=== PATIENT | male | born 1955 | race Caucasian/White ===

== ENCOUNTER 2023-11-20 10:20 | Inpatient (IN) ==
[2023-11-20 11:13] LABS: Basophils # (auto) 0.03 K/uL (0.00-0.20); Basophils % (auto) 0.4 %; Eosinophils % (auto) 1.4 %; Hemoglobin 15.5 g/dl (14.0-18.0); Immature Granulocytes # (auto) 0.02 K/uL (0.01-0.20); Immature Granulocytes % (auto) 0.3 %; Lymphocytes # (auto) 1.67 K/uL (1.20-3.40); Lymphocytes % (auto) 23.4 %; Mean Corpuscular Hemoglobin 32.2 pg (25.0-34.0); Mean Corpuscular Hgb Conc 33.7 g/dL (32.0-36.0); Mean Corpuscular Volume 95.4 fL (80.0-100.0); Mean Platelet Volume 10.1 fL (9.4-12.4); Monocytes # (auto) 0.69 K/uL (0.11-0.59); Monocytes % (auto) 9.7 %; Neutrophils # (auto) 4.64 K/uL (1.40-6.50); Neutrophils % (auto) 64.8 %; Platelet Count 181 K/uL (130-400); RDW Coefficient of Variation 13.6 % (11.5-14.5); RDW Standard Deviation 47.9 fL (36.4-46.3); Red Blood Count 4.82 M/uL (4.70-6.10); White Blood Count 7.15 K/ul (4.8-10.8)
[2023-11-20 11:20] LABS: Albumin Globulin Ratio 1.6 (0.9-2); Albumin Level 4.4 gm/dl (3.4-5.0); Bilirubin,Total 0.4 mg/dl (0.2-1.0); Calcium 9.4 mg/dl (8.6-10.3); Est GFR (African American) 57.1 ml/min; Est GFR (Non-African American) 49.3 ml/min; Globulin 2.8 gm/dl (2.5-4.0); Potassium 4.4 mmol/L (3.5-5.1); Total Protein 7.2 gm/dl (6.0-8.3)
[2023-11-20] MEDS: SODIUM CHLORIDE 0.9% 500 ML IV ONE (11:30)
--- NOTE | 2023-11-20 11:37 | XRay Report ---
SINGLE VIEW CHEST CLINICAL HISTORY: Dyspnea FINDINGS: 2 AP, portable, upright chest radiographs are obtained. No prior studies are available for comparison at the time of dictation. The heart is enlarged. The pulmonary vasculature is noncongested . Nonspecific interstitial thickening is likely chronic. There is mild bibasilar scarring/atelectasis . No airspace consolidation or large pleural effusion is identified. No pneumothorax is seen. The ske letal structures are osteopenic. The bony thorax is grossly intact. Arthritic change is seen in the r ight shoulder. IMPRESSION: Cardiomegaly with no active disease in the chest. ACT 112: Negative or not required by law. Electronically signed by: Laurent Hauser M.D. 11/20/2023 11:35 AM
[2023-11-20] MEDS: OPTIRAY 320 125ml IV ONE (11:41)
[2023-11-20 11:42] LABS: INR 1.1 (0.9-1.1); Partial Thromboplastin Time 27 Seconds (21-31); Prothrombin Time 11.4 Seconds (9.0-12.0)
--- NOTE | 2023-11-20 11:45 | Emergency Department Note ---
Impression & Plan Pulmonary embolism, Elevated troponin ED Provider Note Provider: Tres Jimenez MD DATE OF SERVICE: 11/20/2023 CHIEF COMPLAINT: Dyspnea on exertion HISTORY OF PRESENT ILLNESS: Patient is a 68-year-old gentleman significant history of cardiac arrhythmias and ventricular ectopy status post 3 ablations over the past 12 years visiting the area originally from [place] and follows at [facility] presenting here today complaining of shortness of breath issues. States over the last month or 2 he has noticed a little bit of decreased exercise tolerance and dyspnea on exertion. Has seen his outpatient doctors and they increased his Entresto. Reportedly an outpatient Holter monitor without significant abnormalities reported as well as an echo showing slightly decreased heart function of 40 to 45% ejection fracture. Follows closely with his PCP. This morning left fifth working stopped here to refill the car when when walking at the store began develop severe shortness of breath with exertion. States he had to stop and sit down and he felt near syncopal but did not syncopize. Denies any chest pain. Use the bathroom and then walking back out of the car area of this recurred. Denies significant leg swelling. Denies abdominal pain or nausea or vomiting. Did not much to eat or drink today and states he did feel again some near syncopal or dizzy. No fevers or cough or cold. Texted and talked with his doctor recommend coming in for evaluation. Has traveled fairly significantly recently in the distant past did have a blood clot in his legs is no longer on blood thinners. Patient denies significant sinus congestion. Patient did incidentally have a colonoscopy 2 days ago. Blood pressure was slightly low at that time after the procedure by his report. PAST MEDICAL HISTORY: As noted above MEDICATIONS: Reviewed home medications occasional baby aspirin as well as regular Entresto and carvedilol SOCIAL HISTORY: , lives around [place] PHYSICAL EXAM: GENERAL: alert and oriented in no acute distress on stretcher Head: normocephalic and atraumatic EYES: No injection, discharge or icterus. EOMI. NECK: Trachea midline. ENT: Mucous membranes pink and moist. LUNGS: Airway patent. No retractions. Breath sounds clear with good air entry bilaterally. HEART: Regular rate and rhythm. No chest wall tenderness ABDOMEN: Soft and non-tender, without guarding or rebound. SKIN: Acyanotic, warm, dry, without rashes EXTREMITIES: Without swelling, tenderness or deformity NEUROLOGICAL: No focal deficits. No aphasia. No facial droop or slurred speech. Normal strength and tone in the extremities. Sensation to gross touch normal. Ambulatory. EK bpm sinus rhythm with frequent PVCs. Left axis with a right bundle branch block noted. No clear acute ST segment elevation. QTc 514. CONTINUOUS CARDIAC MONITORING: was ordered and showed a heart rate of 70s-80s bpm in sinus rhythm frequent PVCs Patient's laboratory studies and imaging reviewed. Differential includes Reactive airway disease, pneumonia, pneumothorax, COPD, CHF, infections, cardiac ischemia, pulmonary embolism, musculoskeletal, gastrointestinal, as well as other pathologies. IMPRESSION/MEDICAL DECISION MAKING: Patient does follow regularly with his doctors back in [place] including evaluation this past week. Chest x-ray here without significant findings for pulmonary edema/effusion, pneumothorax, or pneumonia. Patient does not appear an extremis and is satting well on room air. Is having some ectopy with PVCs on telemetry here. Not having significant infectious symptoms and lower suspicion for this etiology but did send a respiratory viral panel. No clinical evidence of swelling in the legs and again low suspicion for heart failure. No clinical evidence of swelling or tenderness in the calves and without clear evidence of DVT. Will exclude PE with a CT of the chest which the patient was sent here for given his recent travel and symptoms. Blood work here without anemia or leukocytosis. Creatinine mildly abnormal at 1.4 but unsure of exact baseline. No severe hyponatremia or hyperkalemia noted without findings of transaminitis. Troponin completed today mildly elevated 52. Respiratory viral panel negative. CT angiogram of the chest per radiology shows extensive bilateral PEs. Discussed with critical care medicine Dr. Caba regarding the patient's case and presentation in regards to initiation of heparin versus thrombolysis. Extensive discussion with by myself as well as the hospitalist with the patient his at bedside. Do believe the patient requires hospitalization and discussing the risk and benefits of anticoagulation versus possibly first using thrombolytics like tPA patient elected to go with anticoagulation and defer thrombolysis at this time. Not hypoxic. Blood pressure in the 100s to 1 teens here. Not tachycardic. Patient states he did have a small end of bleeding after the colonoscopy although this is stopped and the abnormal bowel movement since. Hospitalist will admit the patient. DIAGNOSIS: Pulmonary embolisms, elevated troponin DISPOSITION: Hospitalist will evaluate Patient was agreeable with this plan. Past Med/Surg History Problem List (Updated 11/20/23 @ 12:48 by Tres Jimenez M.D.) Elevated troponin (Acute) Pulmonary embolism (Acute) Social History Smoking Status: Never smoker Preferred Language: Belarusian Feels Safe at Home: Yes Results & Data (ED) Vital Signs Vital Signs - 24 hr 11/20/23 10:21 11/20/23 10:55 11/20/23 10:56 Temperature 36.6 C Temperature Source Temporal Artery Scan Pulse Rate 53 L Pulse Rate [Apical] 83 Respiratory Rate 18 18 Respiratory Effort / Characteristics Non-Labored Spontaneous Respiratory Depth Normal Blood Pressure 86/56 L Blood Pressure [Right Arm] 92/65 L Blood Pressure Mean 66 Blood Pressure Mean [Right Arm] 74 Pulse Oximetry 96 94 94 Oxygen Delivery Method Room Air Room Air Sepsis Recent Fever Within 48 Hours No Sepsis New/Unexplained Change in Mental Status N/A Sepsis Action Taken by Nursing No Action Required 11/20/23 12:04 Temperature Temperature Source Pulse Rate 78 Pulse Rate [Apical] Respiratory Rate Respiratory Effort / Characteristics Respiratory Depth Blood Pressure Blood Pressure [Right Arm] Blood Pressure Mean Blood Pressure Mean [Right Arm] Pulse Oximetry Oxygen Delivery Method Sepsis Recent Fever Within 48 Hours Sepsis New/Unexplained Change in Mental Status Sepsis Action Taken by Nursing Laboratory Data 11/20/23 10:45 11/20/23 10:45 Lab Results 11/20/23 11/20/23 Range/Units 10:45 11:03 WBC 7.15 (4.8-10.8) K/ul RBC 4.82 (4.70-6.10) M/uL Hgb 15.5 (14.0-18.0) g/dl Hct 46.0 (42.0-52.0) % MCV 95.4 (80.0-100.0) fL MCH 32.2 (25.0-34.0) pg MCHC 33.7 (32.0-36.0) g/dL RDW Std Deviation 47.9 H (36.4-46.3) fL RDW Coeff of Ralu 13.6 (11.5-14.5) % Plt Count 181 (130-400) K/uL MPV 10.1 (9.4-12.4) fL Immature Gran % (Auto) 0.3 % Neut % (Auto) 64.8 % Lymph % (Auto) 23.4 % [place] % (Auto) 9.7 % Eos % (Auto) 1.4 % Baso % (Auto) 0.4 % Neut # (Auto) 4.64 (1.40-6.50) K/uL Lymph # (Auto) 1.67 (1.20-3.40) K/uL [place] # (Auto) 0.69 H (0.11-0.59) K/uL Eos # (Auto) 0.10 (0.00-0.50) K/uL Baso # (Auto) 0.03 (0.00-0.20) K/uL Immature Gran # (Auto) 0.02 (0.01-0.20) K/uL PT 11.4 (9.0-12.0) Seconds INR 1.1 (0.9-1.1) APTT 27 (21-31) Seconds PTT Ratio 1.0 Sodium 139 (136-145) mmol/L Potassium 4.4 (3.5-5.1) mmol/L Chloride 110 H (98-107) mmol/L Carbon Dioxide 20 L (21-32) mmol/L Anion Gap 9 (3-11) BUN 30 H (6-23) mg/dl Creatinine 1.43 H (0.6-1.4) mg/dl Est Cr Clr Drug Dosing 59.0 ml/min Est GFR ( Amer) 57.1 ml/min Est GFR (Non-Af Amer) 49.3 ml/min BUN/Creatinine Ratio 21.0 H (10-20) Glucose 155 H (70-99(Fasting)) mg/dl Calcium 9.4 (8.6-10.3) mg/dl Magnesium 2.0 (1.7-2.4) mg/dl Total Bilirubin 0.4 (0.2-1.0) mg/dl AST 21 (13-39) U/L ALT 20 (7-52) U/L Alkaline Phosphatase 92 (34-104) U/L Troponin I High Sens 52.2 H* (0-20) pg/ml Total Protein 7.2 (6.0-8.3) gm/dl Albumin 4.4 (3.4-5.0) gm/dl Globulin 2.8 (2.5-4.0) gm/dl Albumin/Globulin Ratio 1.6 (0.9-2) Adenovirus (PCR) Not Detected (NotDetected) B. pertussis DNA (PCR) Not Detected (NotDetected) B.parapertussis DNA PCR Not Detected (NotDetected) C. pneumoniae DNA (PCR) Not Detected (NotDetected) Coronavirus OC43 (PCR) Not Detected (NotDetected) Coronavirus HKU1 (PCR) Not Detected (NotDetected) Coronavirus 229E (PCR) Not Detected (NotDetected) SARS-CoV-2 (PCR) Not Detected (NotDetected) Coronavirus NL63 (PCR) Not Detected (NotDetected) Human Metapneumovir PCR Not Detected (NotDetected) Influenza Type A (PCR) Not Detected (NotDetected) Influenza Type B (PCR) Not Detected (NotDetected) M. pneumoniae (PCR) Not Detected (NotDetected) Parainfluenza 1 (PCR) Not Detected (NotDetected) Parainfluenza 2 (PCR) Not Detected (NotDetected) Parainfluenza 3 (PCR) Not Detected (NotDetected) Parainfluenza 4 (PCR) Not Detected (NotDetected) RSV (PCR) Not Detected (NotDetected) Entero/Rhino (PCR) Not Detected (NotDetected) Administered Medications Discontinued Medications Sodium Chloride (Nss) 500 mls @ 999 mls/hr IV .Q31M ONE Stop: 11/20/23 11:47 Last Admin: 11/20/23 11:30 Dose: 999 mls/hr Documented By: MENDEL Ioversol (Optiray 320 125ml) 112 ml IV ONCE ONE Stop: 11/20/23 11:42 Last Admin: 11/20/23 11:41 Dose: 112 ml Documented By: JASWINDER Imaging Data Radiologist's Impression: Chest X-Ray 11/20/23 10:52 SINGLE VIEW CHEST CLINICAL HISTORY: Dyspnea FINDINGS: 2 AP, portable, upright chest radiographs are obtained. No prior studies are available for comparison at the time of dictation. The heart is enlarged. The pulmonary vasculature is noncongested. Nonspecific interstitial thickening is likely chronic. There is mild bibasilar scarring/atelectasis. No airspace consolidation or large pleural effusion is identified. No pneumothorax is seen. The skeletal structures are osteopenic. The bony thorax is grossly intact. Arthritic change is seen in the right shoulder. IMPRESSION: Cardiomegaly with no active disease in the chest. ACT 112: Negative or not required by law. Electronically signed by: Laurent Hauesr M.D. 11/20/2023 11:35 AM Discharge Plan Visit Data Chief Complaint: Shortness of Breath/Dyspnea Stated Complaint: SOB, POSSIBLE BLOOD CLOT, REF BY DOC ED Provider: Tres Jimenez Discharge Problem: Pulmonary embolism, Elevated troponin Patient Disposition: Being Evaluated by Hospitalist Forms Stand Alone Forms: [facility] Referrals Referrals: Narendra Acosta MD [Primary Care Provider] - Discharge Problem: Pulmonary embolism Qualifiers: Pulmonary embolism type: unspecified Chronicity: acute Acute cor pulmonale presence: unspecified Qualified Code(s): I26.99 - Other pulmonary embolism without acute cor pulmonale
[2023-11-20 11:52] LABS: Troponin I High Sensitivity 52.2 pg/ml (0-20)
[2023-11-20 12:05] LABS: Adenovirus PCR Not Detected (NotDetected); Bordetella parapertussis PCR Not Detected (NotDetected); Bordetella pertussis PCR Not Detected (NotDetected); Chlamydia pneumoniae PCR Not Detected (NotDetected); Coronavirus 229E PCR Not Detected (NotDetected); Coronavirus CoV-2 (COVID19)PCR Not Detected (NotDetected); Coronavirus HKU1 PCR Not Detected (NotDetected); Coronavirus NL63 PCR Not Detected (NotDetected); Coronavirus OC43PCR Not Detected (NotDetected); Human Metapneumovirus PCR Not Detected (NotDetected); Influenza A PCR Not Detected (NotDetected); Influenza B PCR Not Detected (NotDetected); Mycoplasma pneumoniae PCR Not Detected (NotDetected); Parainfluenza Virus 1 PCR Not Detected (NotDetected); Parainfluenza Virus 2 PCR Not Detected (NotDetected); Parainfluenza Virus 3 PCR Not Detected (NotDetected); Parainfluenza Virus 4 PCR Not Detected (NotDetected); Respiratory Syncytial VirusPCR Not Detected (NotDetected); Rhinovirus/Enterovirus PCR Not Detected (NotDetected)
[2023-11-20 12:43] LABS: Thyroid Stimulating Hormone 2.963 uIu/ml (0.300-4.500)
[2023-11-20] MEDS ORDERED: Heparin IV Adult Wt-Based Standard w/ INITIAL Bolus Protocol IV STA (12:46)
--- NOTE | 2023-11-20 12:46 | CT Scan Report ---
CT ANGIOGRAM OF THE CHEST CLINICAL HISTORY: Dyspnea. Dizziness. COMPARISON STUDY: Chest x-ray dated 11/20/2023. TECHNIQUE: Following the IV administration of 112 cc of Optiray 320, CT angiogram of the chest was pe rformed from the upper abdomen to the thoracic inlet utilizing the pulmonary embolus protocol. Images are reviewed in the axial, sagittal, and coronal planes. 3-D MIPS images are created and assessed. I V contrast was administered without complication. A dose lowering technique was utilized adhering to the principles of ALARA. CT DOSE: 855.04 mGy.cm FINDINGS: Thyroid: Imaged portions of the thyroid gland are normal in size and attenuation. Thoracic aorta: The thoracic aorta is normal in caliber and demonstrates standard 3-vessel arch anato my. The thoracic aorta is not opacified. Pulmonary vasculature: The pulmonary trunk is dilated, measuring 3.9 cm in diameter. This indicates p ulmonary hypertension. There is extensive bilateral pulmonary embolus. There is thrombus within the m id to distal right main pulmonary artery. This extends into the right upper, middle, and lower lobe p ulmonary arteries NG tube segmental and subsegmental branches. There is thrombus in the distal left m ain pulmonary artery. This extends into the left lower lobe pulmonary artery NG tube segmental and puckett bsegmental branches. There is segmental and subsegmental poor embolus within branches of the left upp er lobe and lingular pulmonary arteries.. Heart: The heart is enlarged and without pericardial effusion. There is coronary artery atheroscleros is. Lungs and pleural spaces: No airspace consolidation or pleural effusion is identified. The trachea an d central airways are clear. Scarring/atelectasis is noted at the lung bases. There are scattered jeffrey cified granulomas. Mediastinum: There is no mediastinal lymphadenopathy. Estelle: Clear. Axillae: There is no axillary lymphadenopathy. Upper abdomen: Partially visualized upper abdominal viscera is within normal limits. Skeletal structures: The skeletal structures are osteopenic. Advanced arthritic change is seen in the shoulders. Mild spondylotic change is noted in the spine. No lytic or blastic bony lesions are seen. Soft tissues: Mild gynecomastia is observed. IMPRESSION: 1. Extensive bilateral pulmonary emboli as detailed above. 2. Cardiomegaly with evidence of pulmonary artery hypertension. 3. No airspace consolidation or pleural effusion is identified. 4. Additional findings as above. ACT 112: Negative or not required by law. Electronically signed by: Laurent Hauser M.D. 11/20/2023 12:43 PM
[2023-11-20] MEDS ORDERED: HEPARIN SOD (PORCINE) 1000 UNIT/ML IV ONE (13:01)
[2023-11-20] MEDS ORDERED: HEPARIN SODIUM/DEXTROSE 25,000 UNITS/500 ML BAG IV SCH (13:15)
--- NOTE | 2023-11-20 13:17 | History & Physical Report ---
Date of Service November 20, 2023 Assessment & Plan (1) Pulmonary embolism: Plan: Massive PE - CTA: 1. Extensive bilateral pulmonary emboli as detailed above. 2. Cardiomegaly with evidence of pulmonary artery hypertension. 3. No airspace consolidation or pleural effusion is identified. -With history of prior DVT anticoagulation discontinued after several months of treatment Likely provoked by up to 10-hour car rides multiple times while traveling in the recent week. Denies trauma/injury. Does not use tobacco products Blood pressure 86/56, 92/65 on arrival and pt w/ presyncope while in the parking lot. Patient transiently with blood pressure improvement while laying in bed however pressures again dropped back down to low 90s. - Meets massive PE criteria. Presyncope with hypotension and extensive bilateral clot burden without saddle; he does show some evidence of heart strain w/ elevated troponin. Also reviewed w/ rads and there is not significant RV dilation or reversal of the IV septum, some dilation of the pulmonary trunk but this could be related to either right heart strain or PAH. Discussed risk/benefits of thrombolytic therapy and bleeding risk patient and his at bedside. Discussed potential options including management with heparin alone, thrombolysis, and half dose thrombolysis protocol. Risks of thrombolysis were reviewed. Bleeding risk was reviewed in detail, patient had some transient bright red blood following colonoscopy from hemorrhoid but otherwise has had multiple normal bowel movements since with no blood and no active bleeding within the last 24 hours. No history of other significant bleeding. Patient is aware of risk of bleeding, approximate 6-9% of major bleeding, and 1.5-3% risk of ICH with standard protocol. On extensive discussion and shared decision making, of which patient also texted to involve their PCP with who they have a close relationship, elected to pursue half dose thrombolytic treatment. Patient had already been started on tPA, fibrinogen deferred. - trended coags Q1H, transition to heparin gtt no bolus when PTT <2x normal/Anti-Xa 0.4 per protocol (2) Elevated troponin: Plan: Suspect due to heart strain No chest pain or chest pressure Without acute ischemic change on EKG Patient did have a history of PVCs and known ischemic cardiomyopathy. Has not had any PVCs on his last Holter monitor, these have returned while in the ER likely due to heart strain/stress - echo pending - Records from outpt providers requested, may not be available until 11/21 (3) Nonischemic cardiomyopathy: Plan: Patient reports he is on carvedilol and Entresto. Denies history of heart attacks/stents. Did have an ablation for PVCs Last EF 40-45% Echo pending Troponin trended Records requested (4) Diabetes: Plan: Type II DM on metformin monotherapy, metformin held ICU hypoglycemia protocol Plan DVT prophylaxis: Anticoagulated Diet: Heart healthy Disposition: ICU CODE STATUS: Full code History of Present Illness Primary Care Provider: Narendra Shereen Dave Brice is a 68-year-old male with a past medical history of extensive PVCs with reduced EF s/p ablation denies history of ischemic disease, DM on metformin, past PE who is traveling through town who has had multiple 10-hour car rides recently and was charging his vehicle when he became lightheaded/dizzy and short of breath. Shortness of breath worsened and presented to the ER. He was found to have bilateral extensive PE with high clot burden, no saddle PE. She is from out of town and lives near [place]. He reports that he has had multiple 10-hour drive in the last week as he had been traveling with his . Yesterday he was a little short of breath in the evening, today he was feeling his vehicle and shortness of breath significantly increased and was associated with lightheadedness and presyncope, but without syncope. He did not have chest pain at the time. He did not pass out or hit his head. He was advised to go to the ER after contacting his PCP by phone. He had a colonoscopy 2 days ago which reportedly had a small amount of bright red hemorrhoidal bleeding which resolved and he has had normal bowel movements since. No melena. No hematochezia in the last 24 hours. Denies history of other significant bleeding including GI bleeds, spontaneous epistaxis. No known history of vascular malformations or aneurysms. On arrival patient's BP was 86/56 and 92/65. Heart rate 80s History of DVT many years ago. Cardiac ablation, ventricular ablation for PVCs. Well controlled after. No PVCs since, although are seen now s/p appendectomy hernia repair No surgery in the last 6 months Carvedilol, Entresto due to ablations and frequent PVCs with EF 40-45%. Had some dyspnea 1 week ago. Had a bubble study with no PFO in July Atorvastatin 20mg daily Metformin Well controlled DM 6.7% at last A1C Was in the car for 10 hours several times in the last few weeks travelling. - Dr. Castellano. [facility] in [facility] near [place] - Dr. Narendra Acosta with [facility] and [place] No HX of ICH. NO known vascular malformation or cancer. No hx of stroke or dissection. No active bleeding. No trauma./ Medical History: Reviewed Medications: Reviewed. Surgical History: Reviewed Family history: Reviewed. No FHx of VTE/PE. Allergies: Reviewed. Cough to lisinopril, otherwise NKDA Social History: No tobacco, former smoker 30 years ago. 1 drink ETOH per night, no hx withdrawal or issues going without Code Status: Full Code Allergies Allergy/AdvReac Type Severity Reaction Status Date / Time lisinopril Allergy Cough Verified 11/20/23 13:22 Home Medications Medication Instructions Recorded Confirmed Type B12 1 tab PO QAM 11/20/23 11/20/23 History aspirin 81 mg tablet,delayed 81 mg PO QAM 11/20/23 11/20/23 History release atorvastatin 20 mg tablet 20 mg PO HS 11/20/23 11/20/23 History carvedilol 25 mg tablet 25 mg PO BID 11/20/23 11/20/23 History metformin 500 mg tablet,extended 1,000 mg PO DAILY 11/20/23 11/20/23 History release 24hr (osmotic) sacubitril 24 mg-valsartan 26 mg 1 tab PO BID 11/20/23 11/20/23 History tablet (Entresto) sildenafil (pulm.hypertension) 20 20 mg PO UD PRN Other 11/20/23 11/20/23 History mg tablet Past Med/Surg History Problem List Acute massive pulmonary embolism Diabetes Nonischemic cardiomyopathy Elevated troponin (Acute) Pulmonary embolism (Acute) Social History Smoking Status: Never smoker Preferred Language: Macedonian Feels Safe at Home: Yes Physical Exam Physical Exam: General: A&Ox3. NAD. Cooperative. HEENT: Atraumatic, normocephalic. Vision/hearing intact. Pulm: CTAB A&P. -wheezes, -rales, -rhonchi. Symmetrical chest rise. No increased work of breathing. No respiratory distress. Cardiac: RRR, +soft sm. Radial pulses intact and symmetrical. Abdominal: Nontender, nondistended, soft. BS present. Extremities: Warm and dry. no calf asymmetry Results & Data Results & Data Vital Signs (Past 12 Hours) Vital Signs Temp Pulse Pulse Resp BP BP Pulse Ox 11/20/23 12:04 78 11/20/23 10:56 94 11/20/23 10:55 83 18 92/65 L 94 11/20/23 10:21 36.6 C 53 L 18 86/56 L 96 O2 Del Method 11/20/23 12:04 11/20/23 10:56 Room Air 11/20/23 10:55 Room Air 11/20/23 10:21 PG Care Time/CCT Total # of Minutes Spent Total Time Spent with Patient: Total time spent is greater than 50% in coordination of care (as documented) at patient's floor/unit and/or counseling patient: Coding Level of Care Code 02969 INT INP/OBS CARE 3/75MIN Diagnoses Pulmonary embolism I26.99 Acute cor pulmonale presence: unspecified Chronicity: acute Pulmonary embolism type: unspecified Elevated troponin R79.89 Nonischemic cardiomyopathy I42.8 Diabetes E11.9 (1) Pulmonary embolism Acute cor pulmonale presence: unspecified Chronicity: acute Pulmonary embolism type: unspecified Qualified Code(s): I26.99 - Other pulmonary embolism without acute cor pulmonale
[2023-11-20] MEDS: ALTEPLASE 50mg IV over 2hr **For PE (high bleed/submassive) IV STA (14:10)
[2023-11-20] MEDS: NSS 50 ML--Send if TPA given as SVP IV ONE (14:39)
[2023-11-20] MEDS: HEPARIN SOD (PORCINE) 1000 UNIT/ML IV ONE (14:40)
[2023-11-20] MEDS: PRIMARY PLUMSET--Send if TPA given as SVP IV ONE (14:41)
--- NOTE | 2023-11-20 15:55 | Ultrasound Report ---
ULTRASOUND BILATERAL LOWER EXTREMITY VENOUS CLINICAL HISTORY: Pulmonary embolus COMPARISON STUDY: No priors. TECHNIQUE: Real-time, grayscale, and color Doppler sonography of the deep veins of the right and left lower extremity was performed from the inguinal crease to the calf. Compression and augmentation wer e utilized. FINDINGS: Right lower extremity: There is no sonographic evidence of deep venous thrombosis in the right lower extremity. The common femoral, superficial femoral, and popliteal veins are patent and normally compr essible. The greater saphenous vein and the profunda femoris vein at the junction with the common fem oral vein are clear. The visualized calf veins are patent. Occlusive superficial venous thrombus is s een in the lesser saphenous vein within the calf. This approaches within 1 cm of the popliteal vein a nd extends greater than 7 cm in length. Left lower extremity: There is nearly occlusive to occlusive deep venous thrombosis in the left lower extremity extending from the mid superficial femoral vein distally through the popliteal vein and in to the calf within the posterior tibial and peroneal veins. The common femoral vein in the proximal s uperficial femoral vein are patent and normally compressible. The greater saphenous vein and the prof unda femoris vein at the junction with the common femoral vein are clear. There is thrombus within th e lesser saphenous vein in the calf. IMPRESSION: 1. Extensive nearly occlusive to occlusive deep venous thrombosis in the left lower extremity as abov e. 2. There is no sonographic evidence of deep venous thrombosis in the right lower extremity. 3. Superficial venous thrombus is seen in the calf bilaterally within the lesser saphenous veins. ACT 112: Negative or not required by law. Electronically signed by: Laurent Hauser M.D. 11/20/2023 3:53 PM
[2023-11-20 16:06] LABS: ANTI-Xa, UFH(UnfractionatedHep < 0.10 IU/ml (0.3-0.7); Partial Thromboplastin Ratio 1.1; Partial Thromboplastin Time 29 Seconds (21-31)
[2023-11-20 16:11] LABS: Appearance Urine Clear (Clear); Bacteria Urine Automated None Seen (None Seen); Bilirubin Urine Negative (Negative); Blood Urine Negative (Negative); Color Urine Yellow; Epithelial Cell Urine Auto 0-2 /hpf (0-2); Glucose Urine UA Negative (Negative); Ketones Urine Trace (Negative); Leukocyte Esterase Urine Negative (Negative); Nitrite Urine Negative (Negative); Protein Urine Trace (Negative); RBC Urine Automated 0-2 /hpf (0-2); Specific Gravity Urine > 1.045 (1.000-1.030); Urobilinogen Urine Negative (Negative); WBC Urine Automated 0-5 /hpf (0-5); pH Urine 5.5 (4.5-7.5)
[2023-11-20] MEDS ORDERED: ICU Protocol for HYPERglycemia SCH (16:30)
[2023-11-20] MEDS: HEPARIN SODIUM/DEXTROSE 25,000 UNITS/500 ML BAG IV SCH (16:41)
[2023-11-20] MEDS: Heparin IV Adult Wt-Based Low-Dose *NO* INITIAL Bolus Protocol IV ONE (16:44)
[2023-11-20] MEDS: ICU Protocol for HYPERglycemia SCH (16:48)
[2023-11-20 17:18] LABS: Hematocrit (blood only) 43.8 % (42.0-52.0); Hemoglobin 14.8 g/dl (14.0-18.0); Mean Corpuscular Hgb Conc 33.8 g/dL (32.0-36.0); Mean Corpuscular Volume 94.8 fL (80.0-100.0); Mean Platelet Volume 9.8 fL (9.4-12.4); Platelet Count 166 K/uL (130-400); RDW Coefficient of Variation 13.7 % (11.5-14.5); RDW Standard Deviation 47.8 fL (36.4-46.3); Red Blood Count 4.62 M/uL (4.70-6.10); White Blood Count 7.83 K/ul (4.8-10.8)
--- NOTE | 2023-11-20 18:40 | Critical Care Consultation ---
Date of Consultation November 20, 2023 Assessment & Plan (1) Diabetes: (2) Nonischemic cardiomyopathy: (3) Pulmonary embolism: (4) Elevated troponin: (5) Acute massive pulmonary embolism: Plan Reason Critically Ill: 68 YOM presents to the ICU following massive PE with hemodynamic instability following Thrombolytic administration Neuro - No acute needs CAM ICU: Negative - neuro exams q2-4 hour follow thrombolytic- any change obtain non-con head ct Cardiac - shock, elevation of HsCTNI, NICM, - Shock secondary to obstructive from bilateral pulmonary artery trunks with extension into bilateral lobes of lungs as well as segmentals - s/p 50mg TPA- heparin in fusion as per protocol - Hemodynamics improved and RR improved- continue to follow - 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- likely will continue to need lifelong anticoagulation - Troponin elevated and downtrended without ECG changes- likely demand from PE and shock - Hold Carvedilol and Entresto until hemodynamics are proven stable Respiratory - No acute needs GI - No acute needs - diet advance as tolerated RENAL/LYTES - No acute needs - No acute needs ENDO - No acute needs - ICU hyper/hypoglycemia protocol HEME - DVT/PE - DVT- Left lower nearly occlusive to deep system, superficial bilaterally calves- now with large PE burdens- recommend lifelong anticoagulation - Patient reports that he had a DVT previous and reports that he had hypercoag panel that was what he reports as normal ID - No concern for infectious etiology at this time LINES/IV ACCESS - PIV Continue use of these lines DVT PROPHYLAXIS - Heparin infusion and SCDS DISPO: ICU until hemodynamics are proven stable I have personally spent 50 minutes of critical care time in the direct management of this patient. This is a life/limb threatening event. This includes time spent evaluating patient, direct bedside care, chart review, placing orders, interpretation of diagnostic studies, discussion with consultants, patient, and family members, as well as other required patient management ac tivities. This time is exclusive of all separately billable procedures, and teaching time and separate from and in addition to any other critical care service time. Thank you for allowing us to participate in the care of this patient. Please refer to my attending physician's documentation for any further recommendations. Supervising Physician Co-Signing Physician Notes I have personally evaluated and examined this patient. I agree with assessment and plan of Hossein REN. I was advised that this patient urgently via telephone from the emergency medicine provider. Given patient is symptomatic and initial blood pressure on presentation I feel that thrombolysis is strongly indicated. Providers report no contraindication to systemic thrombolysis. Patient initially declined however after discussion with PCP they opted to proceed with thrombolysis. History of Present Illness Reason for Consultation: Pulmonary Embolism with hemodyanmic instability s/p TPA Requesting Physician: Angel Robertson MD Attending Physician: Angel Robertson MD History of Present Illness 68 YOM with medical history of: PVCs, Ventricular ablation, DVT, DM, NICM. Patient came to the EMD today for evaluation of dyspnea and dizziness. The dizziness has been ongoing for the past 2 weeks he has had his medications adjusted by his PCP for his NICM/HFrEF and thought that may have been the cause. Today he was driving from [place] to [place] and stopped in [facility]. He got out of the car to go to the restroom and charge his car. He reports that he got dizzy and was having difficult breathing. He reports that he had to stop about every 100 feet to catch his breath and this was new for him. He came to the EMD. In the EMD the patient had a CXR, ECG, and CTA of the chest performed. He was noted to be hypotensive on arrival and tachypneic. He was not overtly hypoxic. His CTA of his chest noted extensive bilateral pulmonary embolism noted in the distal to mid right main stem extending into all lobes as well as thrombus in the distal left main that extended in to the left lower lobe as well as subsegmental emboli. With the patient's hypotension/pre-syncope- he was consented for Thrombolytics after a discussion with the hospitalist, Homeworker, and the patient's PCP. He was then admitted to the ICU where he will be continued on heparin infusion when his antiXA levels are approriate Allergies Allergy/AdvReac Type Severity Reaction Status Date / Time lisinopril Allergy Cough Verified 11/20/23 13:22 Home Medications Medication Instructions Recorded Confirmed Type B12 1 tab PO QAM 11/20/23 11/20/23 History aspirin 81 mg tablet,delayed 81 mg PO QAM 11/20/23 11/20/23 History release atorvastatin 20 mg tablet 20 mg PO HS 11/20/23 11/20/23 History carvedilol 25 mg tablet 25 mg PO BID 11/20/23 11/20/23 History metformin 500 mg tablet,extended 1,000 mg PO DAILY 11/20/23 11/20/23 History release 24hr (osmotic) sacubitril 24 mg-valsartan 26 mg 1 tab PO BID 11/20/23 11/20/23 History tablet (Entresto) sildenafil (pulm.hypertension) 20 20 mg PO UD PRN Other 11/20/23 11/20/23 History mg tablet Patient History Social History Smoking Status: Former smoker Tobacco Type: Cigarettes Hx Alcohol Use: Yes Alcohol type: hard liquor Hx Substance Use: No Preferred Language: Sami [employer] Required: No Beliefs That Will Affect Care: None Current Living Situation: Spouse Other Information That Helps Us Care for You: No Feels Safe at Home: Yes Safety Concerns: Feels Safe At This Time Assistive Devices: Glasses Review of Systems Review of Systems: REVIEW OF SYSTEMS: Constitutional: No fever, sweats or chills Eyes: No diplopia, no worsening or blurred vision ENT: normal hearing, no trouble swallowing Respiratory: (+) dyspnea with exertion, No cough, sputum, dyspnea at rest or on exertion Cardiovascular: (+) dizziness, palpitations, No chest pain, tightness or palpitations Abdomen: No pain, nausea, vomiting, diarrhea or constipation Musculoskeletal: No joint pain, calf pain, swelling Neurologic: No weakness, numbness/tingling, or balance problems Psychiatric: No anxiety or depression Skin: No rash or itch Physical Exam Physical Exam: PHYSICAL EXAM: General: awake, alert, no apparent distress Head: Normocephalic, atraumatic ENT: PERRL, EOMI, no pharyngeal exudate, mucous membranes moist Neuro: AAO x 3, speech clear and appropriate, strength intact bilaterally 5/5, sensation intact and equal all extremities and dermatomes, no pronator drift Chest: equal rise and fall of the chest, no accessory muscle use, no heaves or thrills, Clear to auscultation, on room air, Cardiac: Regular rate and rhythm, telemetry reviewed, skin warm dry, cap refill <3 seconds, peripheral pulses +2 no JVD, no murmur, no edema GI: NABS x 4 quadrants, soft, nontender to palpation, no rebound, guarding or tenderness : Spontaneously voiding, no pain, no CVA tenderness, Extremities: Normal inspection, no peripheral edema or erythema, calfs nontender to palpation Psych: Normal mood and affect Skin: no rash or erythema Results & Data Results & Data Vital Signs (Past 12 Hours) Vital Signs Temp Pulse Pulse Resp BP BP Pulse Ox 11/20/23 17:33 86 25 H 93 11/20/23 17:30 116/57 L 11/20/23 17:18 73 21 93 11/20/23 17:06 69 22 98 11/20/23 17:00 112/63 11/20/23 16:48 78 19 87 L 11/20/23 16:42 73 19 97 11/20/23 16:06 67 22 93 11/20/23 16:00 67 18 109/73 94 11/20/23 16:00 67 11/20/23 15:59 11/20/23 15:45 11/20/23 15:43 64 117/74 92 11/20/23 15:33 63 19 95 11/20/23 15:18 63 20 97 11/20/23 14:39 70 17 94 11/20/23 14:33 36.4 C L 68 23 105/63 95 11/20/23 14:10 67 18 108/68 97 11/20/23 14:00 72 14 96 11/20/23 13:49 106/56 L 11/20/23 13:48 71 22 11/20/23 13:48 97/70 L 11/20/23 13:48 73 18 106/56 L 95 11/20/23 13:36 73 20 11/20/23 12:39 79 9 L 95 11/20/23 12:04 78 11/20/23 12:03 74 13 95 11/20/23 11:30 97/65 L 11/20/23 11:30 78 13 94 11/20/23 11:06 81 12 92 11/20/23 11:00 91/64 L 11/20/23 10:56 94 11/20/23 10:55 83 18 92/65 L 94 11/20/23 10:45 81 14 94 11/20/23 10:42 85 13 11/20/23 10:21 36.6 C 53 L 18 86/56 L 96 Pulse Ox O2 Del Method O2 Del Method 11/20/23 17:33 11/20/23 17:30 11/20/23 17:18 11/20/23 17:06 11/20/23 17:00 11/20/23 16:48 11/20/23 16:42 11/20/23 16:06 11/20/23 16:00 Room Air 11/20/23 16:00 11/20/23 15:59 Room Air 11/20/23 15:45 94 Room Air 11/20/23 15:43 Room Air 11/20/23 15:33 11/20/23 15:18 11/20/23 14:39 11/20/23 14:33 Room Air 11/20/23 14:10 Room Air 11/20/23 14:00 11/20/23 13:49 11/20/23 13:48 11/20/23 13:48 11/20/23 13:48 Room Air 11/20/23 13:36 11/20/23 12:39 11/20/23 12:04 11/20/23 12:03 11/20/23 11:30 11/20/23 11:30 11/20/23 11:06 11/20/23 11:00 11/20/23 10:56 Room Air 11/20/23 10:55 Room Air 11/20/23 10:45 11/20/23 10:42 11/20/23 10:21 Laboratory Results Abnormal lab results 11/20/23 11/20/23 11/20/23 Range/Units 10:45 13:00 15:25 RBC (4.70-6.10) M/uL RDW Std Deviation 47.9 H (36.4-46.3) fL Yates # (Auto) 0.69 H (0.11-0.59) K/uL Heparin Anti-Xa, Unfract < 0.10 L (0.3-0.7) IU/ml Chloride 110 H (98-107) mmol/L Carbon Dioxide 20 L (21-32) mmol/L BUN 30 H (6-23) mg/dl Creatinine 1.43 H (0.6-1.4) mg/dl BUN/Creatinine Ratio 21.0 H (10-20) Glucose 155 H (70-99(Fasting)) mg/dl POC Glucose (70-99) mg/dl Troponin I High Sens 52.2 H* 50.1 H* 44.9 H (0-20) pg/ml Ur Specific [place] (1.000-1.030) Urine Protein (Negative) Urine Ketones (Negative) U Hyaline Cast (Auto) (0-2) /lpf 11/20/23 11/20/23 11/20/23 Range/Units 15:30 17:02 Unknown RBC 4.62 L (4.70-6.10) M/uL RDW Std Deviation 47.8 H (36.4-46.3) fL Yates # (Auto) (0.11-0.59) K/uL Heparin Anti-Xa, Unfract (0.3-0.7) IU/ml Chloride (98-107) mmol/L Carbon Dioxide (21-32) mmol/L BUN (6-23) mg/dl Creatinine (0.6-1.4) mg/dl BUN/Creatinine Ratio (10-20) Glucose (70-99(Fasting)) mg/dl POC Glucose 100 H (70-99) mg/dl Troponin I High Sens (0-20) pg/ml Ur Specific [place] > 1.045 H (1.000-1.030) Urine Protein Trace H (Negative) Urine Ketones Trace H (Negative) U Hyaline Cast (Auto) 3-5 H (0-2) /lpf Diagnostic Findings Chest X-Ray 11/20/23 10:52 SINGLE VIEW CHEST CLINICAL HISTORY: Dyspnea FINDINGS: 2 AP, portable, upright chest radiographs are obtained. No prior studies are available for comparison at the time of dictation. The heart is enlarged. The pulmonary vasculature is noncongested. Nonspecific interstitial thickening is likely chronic. There is mild bibasilar scarring/atelectasis. No airspace consolidation or large pleural effusion is identified. No pneumothorax is seen. The skeletal structures are osteopenic. The bony thorax is grossly intact. Arthritic change is seen in the right shoulder. IMPRESSION: Cardiomegaly with no active disease in the chest. ACT 112: Negative or not required by law. Electronically signed by: Laurent Hauser M.D. 11/20/2023 11:35 AM Chest CTA 11/20/23 11:17 CT ANGIOGRAM OF THE CHEST CLINICAL HISTORY: Dyspnea. Dizziness. COMPARISON STUDY: Chest x-ray dated 11/20/2023. TECHNIQUE: Following the IV administration of 112 cc of Optiray 320, CT angiogram of the chest was performed from the upper abdomen to the thoracic inlet utilizing the pulmonary embolus protocol. Images are reviewed in the axial, sagittal, and coronal planes. 3-D MIPS images are created and assessed. IV contrast was administered without complication. A dose lowering technique was utilized adhering to the principles of ALARA. CT DOSE: 855.04 mGy.cm FINDINGS: Thyroid: Imaged portions of the thyroid gland are normal in size and attenuation. Thoracic aorta: The thoracic aorta is normal in caliber and demonstrates standard 3-vessel arch anatomy. The thoracic aorta is not opacified. Pulmonary vasculature: The pulmonary trunk is dilated, measuring 3.9 cm in diameter. This indicates pulmonary hypertension. There is extensive bilateral pulmonary embolus. There is thrombus within the mid to distal right main pulmonary artery. This extends into the right upper, middle, and lower lobe pulmonary arteries NG tube segmental and subsegmental branches. There is thrombus in the distal left main pulmonary artery. This extends into the left lower lobe pulmonary artery NG tube segmental and subsegmental branches. There is segmental and subsegmental poor embolus within branches of the left upper lobe and lingular pulmonary arteries.. Heart: The heart is enlarged and without pericardial effusion. There is coronary artery atherosclerosis. Lungs and pleural spaces: No airspace consolidation or pleural effusion is identified. The trachea and central airways are clear. Scarring/atelectasis is noted at the lung bases. There are scattered calcified granulomas. Mediastinum: There is no mediastinal lymphadenopathy. Estelle: Clear. Axillae: There is no axillary lymphadenopathy. Upper abdomen: Partially visualized upper abdominal viscera is within normal limits. Skeletal structures: The skeletal structures are osteopenic. Advanced arthritic change is seen in the shoulders. Mild spondylotic change is noted in the spine. No lytic or blastic bony lesions are seen. Soft tissues: Mild gynecomastia is observed. IMPRESSION: 1. Extensive bilateral pulmonary emboli as detailed above. 2. Cardiomegaly with evidence of pulmonary artery hypertension. 3. No airspace consolidation or pleural effusion is identified. 4. Additional findings as above. ACT 112: Negative or not required by law. Electronically signed by: Laurent Hauser M.D. 11/20/2023 12:43 PM Venous Doppler Study 11/20/23 13:39 ULTRASOUND BILATERAL LOWER EXTREMITY VENOUS CLINICAL HISTORY: Pulmonary embolus COMPARISON STUDY: No priors. TECHNIQUE: Real-time, grayscale, and color Doppler sonography of the deep veins of the right and left lower extremity was performed from the inguinal crease to the calf. Compression and augmentation were utilized. FINDINGS: Right lower extremity: There is no sonographic evidence of deep venous thrombo sis in the right lower extremity. The common femoral, superficial femoral, and popliteal veins are patent and normally compressible. The greater saphenous vein and the profunda femoris vein at the junction with the common femoral vein are clear. The visualized calf veins are patent. Occlusive superficial venous thrombus is seen in the lesser saphenous vein within the calf. This approaches within 1 cm of the popliteal vein and extends greater than 7 cm in length. Left lower extremity: There is nearly occlusive to occlusive deep venous thrombosis in the left lower extremity extending from the mid superficial femoral vein distally through the popliteal vein and into the calf within the posterior tibial and peroneal veins. The common femoral vein in the proximal superficial femoral vein are patent and normally compressible. The greater saphenous vein and the profunda femoris vein at the junction with the common femoral vein are clear. There is thrombus within the lesser saphenous vein in the calf. IMPRESSION: 1. Extensive nearly occlusive to occlusive deep venous thrombosis in the left lower extremity as above. 2. There is no sonographic evidence of deep venous thrombosis in the right lower extremity. 3. Superficial venous thrombus is seen in the calf bilaterally within the lesser saphenous veins. ACT 112: Negative or not required by law. Electronically signed by: Laurent Hauser M.D. 11/20/2023 3:53 PM Medications Administered Heparin Sodium/Dextrose (Heparin Sodium/Dextrose) 25,000 units in 500 mls @ 20 mls/hr IV .Q24H SAMUEL; Protocol Stop: 12/20/23 16:44 Last Admin: 11/20/23 16:41 Dose: 1,000 units/hr, 20 mls/hr Documented By: NGOC Co-signed By: KERON Miscellaneous (Icu Protocol For Hyperglycemia) 1 each N/A ACHS SAMUEL Stop: 11/22/23 16:29 Last Admin: 11/20/23 16:48 Dose: 1 each Documented By: NGOC Discontinued Medications Heparin Sodium (Porcine) (Heparin Sod (Porcine) 1000 Unit/Ml) 7,000 units IV NOW ONE Stop: 11/20/23 13:02 Last Admin: 11/20/23 14:40 Dose: Not Given Documented By: NGOC Heparin Sodium/Dextrose (Heparin Iv Adult Wt-Based Low-Dose *No* Initial Bolus Protocol) 1 each IV ONE ONE; Protocol Stop: 11/20/23 14:30 Last Admin: 11/20/23 16:44 Dose: 1 each Documented By: NGOC Sodium Chloride (Nss) 500 mls @ 999 mls/hr IV .Q31M ONE Stop: 11/20/23 11:47 Last Infusion: 11/20/23 12:43 Dose: Infused Documented By: Admin: 11/20/23 11:30 Dose: 999 mls/hr Documented By: MNEDEL Alteplase, Recombinant 50 mg/ (EMPTY BAG) 50 mls @ 100 mls/hr IV NOW STA; Protocol Stop: 11/20/23 13:41 Last Infusion: 11/20/23 14:40 Dose: Infused Documented By: Admin: 11/20/23 14:10 Dose: 100 mls/hr Documented By: KELLIE N/A (Primary [place], Pe Lined Tubing ([id number])) 0 mls @ 0.0033 mls/hr IV ONE ONE Stop: 11/20/23 13:16 Last Admin: 11/20/23 14:41 Dose: 100 mls/hr Documented By: NGOC Sodium Chloride (Nss) 50 mls @ 50 mls/hr IV TODAY@ ONE; Protocol Stop: 11/20/23 14:14 Last Infusion: 11/20/23 16:13 Dose: Infused Documented By: Admin: 11/20/23 14:39 Dose: 50 mls/hr Documented By: NGOC Ioversol (Optiray 320 125ml) 112 ml IV ONCE ONE Stop: 11/20/23 11:42 Last Admin: 11/20/23 11:41 Dose: 112 ml Documented By: JASWINDER Coding Level of Care Code 97046 CRITICAL CARE 1ST 30-74M Diagnoses Diabetes E11.9 Nonischemic cardiomyopathy I42.8 Pulmonary embolism I26.99 Acute cor pulmonale presence: unspecified Chronicity: acute Pulmonary embolism type: unspecified Elevated troponin R79.89 Acute massive pulmonary embolism I26.99 (3) Pulmonary embolism Acute cor pulmonale presence: unspecified Chronicity: acute Pulmonary embolism type: unspecified Qualified Code(s): I26.99 - Other pulmonary embolism without acute cor pulmonale
[2023-11-20] MEDS ORDERED: carvediloL 25 MG TAB PO SCH (21:00)
[2023-11-20 21:03] LABS: ANTI-Xa, UFH(UnfractionatedHep 0.19 IU/ml (0.3-0.7)
[2023-11-20] MEDS: HEPARIN SOD (PORCINE) 1000 UNIT/ML IV STA (21:21)
[2023-11-21 03:49] LABS: Basophils # (auto) 0.04 K/uL (0.00-0.20); Basophils % (auto) 0.6 %; Eosinophils # (auto) 0.21 K/uL (0.00-0.50); Hematocrit (blood only) 40.6 % (42.0-52.0); Hemoglobin 13.8 g/dl (14.0-18.0); Immature Granulocytes # (auto) 0.03 K/uL (0.01-0.20); Immature Granulocytes % (auto) 0.4 %; Lymphocytes # (auto) 2.38 K/uL (1.20-3.40); Lymphocytes % (auto) 34.3 %; Mean Corpuscular Hemoglobin 32.3 pg (25.0-34.0); Mean Corpuscular Volume 95.1 fL (80.0-100.0); Mean Platelet Volume 10.1 fL (9.4-12.4); Monocytes # (auto) 0.63 K/uL (0.11-0.59); Monocytes % (auto) 9.1 %; Neutrophils # (auto) 3.65 K/uL (1.40-6.50); Neutrophils % (auto) 52.6 %; Platelet Count 147 K/uL (130-400); RDW Coefficient of Variation 13.6 % (11.5-14.5); RDW Standard Deviation 47.3 fL (36.4-46.3); Red Blood Count 4.27 M/uL (4.70-6.10); White Blood Count 6.94 K/ul (4.8-10.8)
[2023-11-21 04:00] LABS: ANTI-Xa, UFH(UnfractionatedHep 0.43 IU/ml (0.3-0.7)
[2023-11-21 04:50] LABS: BUN Creatinine Ratio 22.1 (10-20); Calcium 8.6 mg/dl (8.6-10.3); Creatinine Clr Calc Pharmacy 86.5 ml/min; Est GFR (African American) 93.6 ml/min; Est GFR (Non-African American) 80.8 ml/min; Potassium 3.8 mmol/L (3.5-5.1)
--- NOTE | 2023-11-21 07:41 | Critical Care Progress Note ---
Date of Service November 21, 2023 Assessment & Plan (1) Diabetes: (2) Nonischemic cardiomyopathy: (3) Pulmonary embolism: (4) Elevated troponin: (5) Acute massive pulmonary embolism: Plan Reason Critically Ill: 68 YOM presents to the ICU following massive PE with hemodynamic instability following Thrombolytic administration Neuro - No acute needs CAM ICU: Negative - neuro exams q2-4 hour follow thrombolytic- any change obtain non-con head ct Cardiac - shock, elevation of HsCTNI, NICM,: Resolved - Shock secondary to obstructive from bilateral pulmonary artery trunks with extension into bilateral lobes of lungs as well as segmentals -Consider restarting carvedilol and Entresto in the next 24 hours Respiratory - No acute needs, not requiring supplemental oxygen GI - No acute needs - diet advance as tolerated RENAL/LYTES - No acute needs - No acute needs ENDO - No acute needs - ICU hyper/hypoglycemia protocol HEME - DVT/PE - DVT- Left lower nearly occlusive to deep system, superficial bilaterally calves- now with large PE burdens- recommend lifelong anticoagulation -Start Eliquis ID - No concern for infectious etiology at this time LINES/IV ACCESS - PIV Continue use of these lines DVT PROPHYLAXIS - Heparin infusion, transition to Eliquis DISPO: Stable for downgrade later today Admission and Anticipated Discharge Date Admission Date: November 20, 2023 Subjective Patient with no significant complaints. Presentation similar to diagnosis 14 years ago which she had a DVT thought to be provoked secondary to the long car rides. Had treated with 6 months of anticoagulation: Warfarin and then discontinued without any recurrence until this admission. Feels fine however patient was only symptomatic with exertion. Discussed anticoagulant options he would like to try Eliquis at this time. Physical Exam Physical Exam: General: Alert. nontoxic. Skin: Warm, dry, Head: Atraumatic Ears, nose, mouth and throat: airway patent Cardiovascular: Normal peripheral perfusion Respiratory: no respiratory distress Gastrointestinal: Non distended Musculoskeletal: No deformity Results & Data Results & Data Vital Signs (Past 12 Hours) Vital Signs Temp Pulse Pulse Resp BP Pulse Ox O2 Del Method 11/21/23 07:21 83 11/21/23 06:00 85 20 113/64 93 Nasal Cannula 11/21/23 05:00 59 L 16 109/66 96 Nasal Cannula 11/21/23 04:00 36.4 C L 65 25 H 109/60 96 Nasal Cannula 11/21/23 03:00 61 18 111/58 L 90 Room Air 11/21/23 02:00 36.4 C L 63 24 113/69 92 Room Air 11/21/23 01:00 64 21 121/75 95 Room Air 11/21/23 00:23 36.5 C 11/21/23 00:00 77 11/21/23 00:00 77 16 110/65 92 Room Air 11/20/23 23:00 64 18 109/64 92 Room Air 11/20/23 22:00 36.5 C 67 16 108/66 92 Room Air 11/20/23 21:00 68 20 105/63 95 Room Air 11/20/23 20:02 67 19 118/70 94 Room Air 11/20/23 19:52 Room Air O2 Flow Rate 11/21/23 07:21 11/21/23 06:00 1 11/21/23 05:00 4 11/21/23 04:00 4 11/21/23 03:00 11/21/23 02:00 11/21/23 01:00 11/21/23 00:23 11/21/23 00:00 11/21/23 00:00 11/20/23 23:00 11/20/23 22:00 11/20/23 21:00 11/20/23 20:02 11/20/23 19:52 Critical Care Results & Data Vital Signs (Past 12 Hours) Vital Signs Temp Pulse Pulse Resp BP Pulse Ox O2 Del Method 11/21/23 07:21 83 11/21/23 06:00 85 20 113/64 93 Nasal Cannula 11/21/23 05:00 59 L 16 109/66 96 Nasal Cannula 11/21/23 04:00 36.4 C L 65 25 H 109/60 96 Nasal Cannula 11/21/23 03:00 61 18 111/58 L 90 Room Air 11/21/23 02:00 36.4 C L 63 24 113/69 92 Room Air 11/21/23 01:00 64 21 121/75 95 Room Air 11/21/23 00:23 36.5 C 11/21/23 00:00 77 11/21/23 00:00 77 16 110/65 92 Room Air 11/20/23 23:00 64 18 109/64 92 Room Air 11/20/23 22:00 36.5 C 67 16 108/66 92 Room Air 11/20/23 21:00 68 20 105/63 95 Room Air 11/20/23 20:02 67 19 118/70 94 Room Air 11/20/23 19:52 Room Air O2 Flow Rate 11/21/23 07:21 11/21/23 06:00 1 11/21/23 05:00 4 11/21/23 04:00 4 11/21/23 03:00 11/21/23 02:00 11/21/23 01:00 11/21/23 00:23 11/21/23 00:00 11/21/23 00:00 11/20/23 23:00 11/20/23 22:00 11/20/23 21:00 11/20/23 20:02 11/20/23 19:52 Lab & Micro Results (Past 24 Hours) RBC 4.27 M/uL (4.70-6.10) L 11/21/23 WBC 6.94 K/ul (4.8-10.8) 11/21/23 Hgb 13.8 g/dl (14.0-18.0) L 11/21/23 Hct 40.6 % (42.0-52.0) L 11/21/23 MCV 95.1 fL (80.0-100.0) 11/21/23 MCH 32.3 pg (25.0-34.0) 11/21/23 MCHC 34.0 g/dL (32.0-36.0) 11/21/23 RDW Standard Deviation 47.3 fL (36.4-46.3) H 11/21/23 RDW Coefficient of Variation 13.6 % (11.5-14.5) 11/21/23 Plt Count 147 K/uL (130-400) 11/21/23 MPV 10.1 fL (9.4-12.4) 11/21/23 Neutrophils (%) (Auto) 52.6 % 11/21/23 Lymphocytes (%) (Auto) 34.3 % 11/21/23 Monocytes # (Auto) 0.63 K/uL (0.11-0.59) H 11/21/23 Eosinophils # (Auto) 0.21 K/uL (0.00-0.50) 11/21/23 Immature Granulocyte % (Auto) 0.4 % 11/21/23 Neutrophils # (Auto) 3.65 K/uL (1.40-6.50) 11/21/23 Lymphocytes # (Auto) 2.38 K/uL (1.20-3.40) 11/21/23 Monocytes # (Auto) 0.63 K/uL (0.11-0.59) H 11/21/23 Eosinophils # (Auto) 0.21 K/uL (0.00-0.50) 11/21/23 Basophils # (Auto) 0.04 K/uL (0.00-0.20) 11/21/23 Immature Granulocyte # (Auto) 0.03 K/uL (0.01-0.20) 4 Na 139 mmol/L (136-145) 11/21/23 K 3.8 mmol/L (3.5-5.1) 11/21/23 Cl 113 mmol/L (98-107) H 11/21/23 CO2 17 mmol/L (21-32) L 11/21/23 Anion Gap 9 (3-11) 11/21/23 BUN 21 mg/dl (6-23) 11/21/23 Creatinine 0.95 mg/dl (0.6-1.4) 11/21/23 Estimated GFR ( Amer) 93.6 ml/min 11/21/23 Estimated GFR (Non-Af Amer) 80.8 ml/min 11/21/23 BUN/Creatinine Ratio 22.1 (10-20) H 11/21/23 Glu 162 mg/dl (70-99(Fasting)) H 11/21/23 Ca 8.6 mg/dl (8.6-10.3) 11/21/23 Total Bilirubin 0.4 mg/dl (0.2-1.0) 11/20/23 AST 21 U/L (13-39) 11/20/23 ALT 20 U/L (7-52) 11/20/23 Alkaline Phosphatase 92 U/L (34-104) 11/20/23 TP 7.2 gm/dl (6.0-8.3) 11/20/23 Albumin 4.4 gm/dl (3.4-5.0) 11/20/23 Globulin 2.8 gm/dl (2.5-4.0) 11/20/23 Albumin/Globulin Ratio 1.6 (0.9-2) 11/20/23 Mg 2.0 mg/dl (1.7-2.4) 11/20/23 10:45 Calcium Level 8.6 mg/dl (8.6-10.3) 11/21/23 03:24 Prothromb Time International Ratio 1.1 (0.9-1.1) 11/20/23 10:4 5 Diagnostic Findings (Past 24 Hours) Chest X-Ray 11/20/23 10:52 SINGLE VIEW CHEST CLINICAL HISTORY: Dyspnea FINDINGS: 2 AP, portable, upright chest radiographs are obtained. No prior studies are available for comparison at the time of dictation. The heart is enlarged. The pulmonary vasculature is noncongested. Nonspecific interstitial thickening is likely chronic. There is mild bibasilar scarring/atelectasis. No airspace consolidation or large pleural effusion is identified. No pneumothorax is seen. The skeletal structures are osteopenic. The bony thorax is grossly intact. Arthritic change is seen in the right shoulder. IMPRESSION: Cardiomegaly with no active disease in the chest. ACT 112: Negative or not required by law. Electronically signed by: Laurent Hauser M.D. 11/20/2023 11:35 AM Chest CTA 11/20/23 11:17 CT ANGIOGRAM OF THE CHEST CLINICAL HISTORY: Dyspnea. Dizziness. COMPARISON STUDY: Chest x-ray dated 11/20/2023. TECHNIQUE: Following the IV administration of 112 cc of Optiray 320, CT angiogram of the chest was performed from the upper abdomen to the thoracic inlet utilizing the pulmonary embolus protocol. Images are reviewed in the axial, sagittal, and coronal planes. 3-D MIPS images are created and assessed. IV contrast was administered without complication. A dose lowering technique was utilized adhering to the principles of ALARA. CT DOSE: 855.04 mGy.cm FINDINGS: Thyroid: Imaged portions of the thyroid gland are normal in size and attenuation. Thoracic aorta: The thoracic aorta is normal in caliber and demonstrates standard 3-vessel arch anatomy. The thoracic aorta is not opacified. Pulmonary vasculature: The pulmonary trunk is dilated, measuring 3.9 cm in diameter. This indicates pulmonary hypertension. There is extensive bilateral pulmonary embolus. There is thrombus within the mid to distal right main pulmonary artery. This extends into the right upper, middle, and lower lobe pulmonary arteries NG tube segmental and subsegmental branches. There is thrombus in the distal left main pulmonary artery. This extends into the left lower lobe pulmonary artery NG tube segmental and subsegmental branches. There is segmental and subsegmental poor embolus within branches of the left upper lobe and lingular pulmonary arteries.. Heart: The heart is enlarged and without pericardial effusion. There is coronary artery atherosclerosis. Lungs and pleural spaces: No airspace consolidation or pleural effusion is identified. The trachea and central airways are clear. Scarring/atelectasis is noted at the lung bases. There are scattered calcified granulomas. Mediastinum: There is no mediastinal lymphadenopathy. Estelle: Clear. Axillae: There is no axillary lymphadenopathy. Upper abdomen: Partially visualized upper abdominal viscera is within normal limits. Skeletal structures: The skeletal structures are osteopenic. Advanced arthritic change is seen in the shoulders. Mild spondylotic change is noted in the spine. No lytic or blastic bony lesions are seen. Soft tissues: Mild gynecomastia is observed. IMPRESSION: 1. Extensive bilateral pulmonary emboli as detailed above. 2. Cardiomegaly with evidence of pulmonary artery hypertension. 3. No airspace consolidation or pleural effusion is identified. 4. Additional findings as above. ACT 112: Negative or not required by law. Electronically signed by: Laurent Hauser M.D. 11/20/2023 12:43 PM Venous Doppler Study 11/20/23 13:39 ULTRASOUND BILATERAL LOWER EXTREMITY VENOUS CLINICAL HISTORY: Pulmonary embolus COMPARISON STUDY: No priors. TECHNIQUE: Real-time, grayscale, and color Doppler sonography of the deep veins of the right and left lower extremity was performed from the inguinal crease to the calf. Compression and augmentation were utilized. FINDINGS: Right lower extremity: There is no sonographic evidence of deep venous thrombosis in the right lower extremity. The common femoral, superficial femoral, and popliteal veins are patent and normally compressible. The greater saphenous vein and the profunda femoris vein at the junction with the common femoral vein are clear. The visualized calf veins are patent. Occlusive superficial venous thrombus is seen in the lesser saphenous vein within the calf. This approaches within 1 cm of the popliteal vein and extends greater than 7 cm in length. Left lower extremity: There is nearly occlusive to occlusive deep venous thrombosis in the left lower extremity extending from the mid superficial femoral vein distally through the popliteal vein and into the calf within the posterior tibial and peroneal veins. The common femoral vein in the proximal superficial femoral vein are patent and normally compressible. The greater saphenous vein and the profunda femoris vein at the junction with the common femoral vein are clear. There is thrombus within the lesser saphenous vein in the calf. IMPRESSION: 1. Extensive nearly occlusive to occlusive deep venous thrombosis in the left lower extremity as above. 2. There is no sonographic evidence of deep venous thrombosis in the right lower extremity. 3. Superficial venous thrombus is seen in the calf bilaterally within the lesser saphenous veins. ACT 112: Negative or not required by law. Electronically signed by: Laurent Hauser M.D. 11/20/2023 3:53 PM I & O Totals 24 Hours 11/20/23 11/21/23 11/22/23 06:59 06:59 06:59 Intake Total 848.684 / 848.684 69 / 69 Output Total 625 / 625 Balance 223.684 / 223.684 69 / 69 Cumulative 11/20/23 10:20 thru 11/21/23 07:06 Intake Total 917.684 Output Total 625 Balance 292.684 RT Ventilator Mngmt (Last Documented) Ventilator Ordered Settings Respiratory Rate 20 11/21/23 06:00 Ventilator - PT Measurements Respiratory Rate 20 Coding Level of Care Code 62592 SUB INP/OBS CARE 3/50MIN Diagnoses Diabetes E11.9 Nonischemic cardiomyopathy I42.8 Pulmonary embolism I26.99 Acute cor pulmonale presence: unspecified Chronicity: acute Pulmonary embolism type: unspecified Elevated troponin R79.89 Acute massive pulmonary embolism I26.99 (3) Pulmonary embolism Acute cor pulmonale presence: unspecified Chronicity: acute Pulmonary embolism type: unspecified Qualified Code(s): I26.99 - Other pulmonary embolism without acute cor pulmonale
--- NOTE | 2023-11-21 08:49 | XCELERA ---
[id number] [id number]
--- NOTE | 2023-11-21 09:08 | Electrocardiogram Report ---
Test Reason : Blood Pressure : / mmHG Vent. Rate : 066 BPM Atrial Rate : 066 BPM P-R Int : 210 ms QRS Dur : 148 ms QT Int : 478 ms P-R-T Axes : 042 -80 044 degrees QTc Int : 501 ms Sinus rhythm with 1st degree A-V block Left anterior fascicular block Non-specific intra-ventricular conduction delay Possible Anterolateral infarct Abnormal ECG When compared with ECG of 20-NOV-2023 10:37, Premature ventricular complexes are no longer Present Confirmed by Kishor Diaz ([id number]) on 11/21/2023 9:08:24 AM Referred By: Angel Robertson Confirmed By:Kishor Diaz
[2023-11-21] MEDS: APIXABAN 5 MG TABLET PO SCH (09:18)
--- NOTE | 2023-11-21 11:57 | Hospitalist Progress Note ---
Date of Service November 21, 2023 Assessment & Plan (1) Pulmonary embolism: Plan: This patient is a 68-year-old male with a history of DVT, HFrEF, V. tach ablation, DM2, and hyperlipidemia who presents with acute onset of presyncope and shortness of breath, found to have extensive bilateral PEs in the right and left main pulmonary arteries, extending into right upper, middle, and lower lobe pulmonary arteries as well as multiple segmental and subsegmental branches, with dilated pulmonary trunk indicating pulmonary hypertension He presented with hypotension, elevated troponin, and received tPA half dose on admission for thrombolytic therapy DVT found in left mid SFV through the popliteal vein and into the calf, along with superficial venous thrombi and bilateral lesser saphenous veins into the calves, approaching 1 cm from popliteal vein extending greater than 7 cm in length (high risk superficial thrombi) DVT/PE provoked by history of previous DVT as well as multiple recent long car rides over 10 hours in length. Troponin peaked at 52 on arrival and trended downward Admitted to ICU and started on heparin drip Doing well today, weaned off oxygen, blood pressures are improved Echocardiogram does show moderate to severe reduced RV function, flattened septum/RV overload, RVSP 40-50 mmHg, EF 40-45%, and severe apical wall hypokinesis Transition to Eliquis 10 Mg p.o. twice daily x 7 days, then decrease to 5 Mg p.o. twice daily-recommend lifelong anticoagulation Continue to hold home Entresto and carvedilol until ensure blood pressures are stabilized (2) Right heart failure: Plan: As noted above, secondary to massive PE Follow-up with cardiology after discharge (3) Acute DVT (deep venous thrombosis): Plan: As noted above (4) Heart failure with mid-range ejection fraction (HFmEF): Plan: With a history of LVEF 40 and 45% on echocardiogram from [place], similar EF here with severe apical wall hypokinesis noted He denies having a cardiac catheterization and this was thought to be nonischemic and secondary to frequent PVCs for now which she has had VT ablation x 3 No evidence of volume overload at this time Holding Entresto and carvedilol for previous hypotension, resume possibly tomorrow Daily weights, strict I's and O's (5) Elevated troponin: Plan: Secondary to PE, trended back downward ECG without ischemic changes (6) Diabetes: Plan: Type II DM on metformin monotherapy, metformin held Blood sugars here are only minimally elevated-continue BSGs before meals and at bedtime Start insulin if become significantly elevated Plan to resume metformin on discharge Plan Disposition: Downgrade from ICU to PCU, improving, possible discharge to home tomorrow, will back check Eliquis CODE STATUS: Full code Discussed care with at the bedside Admission and Anticipated Discharge Date Admission Date: November 20, 2023 Subjective Patient feeling very well today. Denies shortness of breath or chest pain but has not gotten up to walk around yet. He is eating lunch when I saw him. No issues with bleeding except for had 1 drop of blood in his briefs possibly from the urine. Blood pressures are stable overnight. He reports that he typically runs low since being on Entresto and carvedilol-usually around 100/60. Denies any lightheadedness Telemetry with normal sinus rhythm, normal rates, no arrhythmias Physical Exam Constitutional: WD/WN, vitals as above Respiratory: normal respiratory effort, lungs clear to auscultation Cardiovascular: Rate/Rhythm: regular rate and regular rhythm Heart Sounds: no murmur Extremities: + edema (Trace edema left leg) Gastrointestinal (Abdomen): normal bowel sounds, soft, nontender, no hepatosplenomegaly Psychiatric: A+Ox3, euthymic affect Results & Data Results & Data Vital Signs (Past 12 Hours) Vital Signs Temp Pulse Pulse Resp BP BP Pulse Ox 11/21/23 11:06 36.6 C 63 16 112/76 95 11/21/23 10:00 124/82 11/21/23 09:39 64 12 94 11/21/23 09:18 65 23 95 11/21/23 09:00 126/82 11/21/23 08:42 71 19 93 11/21/23 08:00 11/21/23 08:00 68 22 94 11/21/23 07:58 36.5 C 66 23 134/81 95 11/21/23 07:36 75 26 H 93 11/21/23 07:21 83 11/21/23 07:00 60 18 94 11/21/23 06:30 58 L 10 L 94 11/21/23 06:21 59 L 16 95 11/21/23 06:00 85 20 113/64 93 11/21/23 05:36 63 17 92 11/21/23 05:18 61 30 H 96 11/21/23 05:00 59 L 16 109/66 96 11/21/23 04:18 58 L 17 96 11/21/23 04:00 36.4 C L 65 25 H 109/60 96 11/21/23 03:33 60 15 92 11/21/23 03:06 63 15 92 11/21/23 03:00 61 18 111/58 L 90 11/21/23 02:30 67 17 90 11/21/23 02:00 113/69 11/21/23 02:00 60 18 94 11/21/23 02:00 36.4 C L 63 24 113/69 92 11/21/23 01:45 86 22 92 11/21/23 01:03 62 19 93 11/21/23 01:00 64 21 121/75 95 11/21/23 00:36 68 21 93 11/21/23 00:23 36.5 C 11/21/23 00:00 77 11/21/23 00:00 77 16 110/65 92 O2 Del Method O2 Flow Rate 11/21/23 11:06 Room Air 11/21/23 10:00 11/21/23 09:39 11/21/23 09:18 11/21/23 09:00 11/21/23 08:42 11/21/23 08:00 Room Air 11/21/23 08:00 11/21/23 07:58 Room Air 11/21/23 07:36 11/21/23 07:21 11/21/23 07:00 11/21/23 06:30 11/21/23 06:21 11/21/23 06:00 Nasal Cannula 1 11/21/23 05:36 11/21/23 05:18 11/21/23 05:00 Nasal Cannula 4 11/21/23 04:18 11/21/23 04:00 Nasal Cannula 4 11/21/23 03:33 11/21/23 03:06 11/21/23 03:00 Room Air 11/21/23 02:30 11/21/23 02:00 11/21/23 02:00 11/21/23 02:00 Room Air 11/21/23 01:45 11/21/23 01:03 11/21/23 01:00 Room Air 11/21/23 00:36 11/21/23 00:23 11/21/23 00:00 11/21/23 00:00 Room Air Laboratory Results CBC, BMP, troponin, anti-X A level reviewed PG Care Time/CCT Total # of Minutes Spent Total Time Spent with Patient: Total time spent is greater than 50% in coordination of care (as documented) at patient's floor/unit and/or counseling patient: Coding Level of Care Code 29852 SUB INP/OBS CARE 3/50MIN Diagnoses Pulmonary embolism I26.99 Acute cor pulmonale presence: unspecified Chronicity: acute Pulmonary embolism type: unspecified Right heart failure I50.810 Acute DVT (deep venous thrombosis) I82.409 Heart failure with mid-range ejection fraction (HFmEF) I50.22 Elevated troponin R79.89 Diabetes E11.9 (1) Pulmonary embolism Acute cor pulmonale presence: unspecified Chronicity: acute Pulmonary embolism type: unspecified Qualified Code(s): I26.99 - Other pulmonary embolism without acute cor pulmonale
[2023-11-21] MEDS: ATORVASTATIN 20 MG TAB PO SCH (20:47)
[2023-11-22 07:13] LABS: Basophils # (auto) 0.03 K/uL (0.00-0.20); Basophils % (auto) 0.6 %; Eosinophils # (auto) 0.26 K/uL (0.00-0.50); Eosinophils % (auto) 4.8 %; Hematocrit (blood only) 40.4 % (42.0-52.0); Hemoglobin 13.9 g/dl (14.0-18.0); Immature Granulocytes # (auto) 0.02 K/uL (0.01-0.20); Immature Granulocytes % (auto) 0.4 %; Lymphocytes # (auto) 1.79 K/uL (1.20-3.40); Lymphocytes % (auto) 33.3 %; Mean Corpuscular Hemoglobin 32.6 pg (25.0-34.0); Mean Corpuscular Hgb Conc 34.4 g/dL (32.0-36.0); Mean Corpuscular Volume 94.6 fL (80.0-100.0); Monocytes # (auto) 0.58 K/uL (0.11-0.59); Monocytes % (auto) 10.8 %; Neutrophils % (auto) 50.1 %; Platelet Count 179 K/uL (130-400); RDW Coefficient of Variation 13.3 % (11.5-14.5); RDW Standard Deviation 46.3 fL (36.4-46.3); Red Blood Count 4.27 M/uL (4.70-6.10); White Blood Count 5.38 K/ul (4.8-10.8)
[2023-11-22 07:30] LABS: BUN Creatinine Ratio 13.5 (10-20); Calcium 8.9 mg/dl (8.6-10.3); Creatinine Clr Calc Pharmacy 85.6 ml/min; Est GFR (African American) 92.4 ml/min; Est GFR (Non-African American) 79.8 ml/min; Magnesium 1.7 mg/dl (1.7-2.4)
[2023-11-22] MEDS: ASPIRIN 81 MG ECTAB PO SCH (08:03)
--- NOTE | 2023-11-22 11:22 | Discharge Summary ---
Discharge Summary Date of Service November 22, 2023 Principal Dx & Hospital Course #1 = Principal Diagnosis (1) Pulmonary embolism: This patient is a 68-year-old male with a history of DVT, HFrEF, V. tach ablation, DM2, and hyperlipidemia who presents with acute onset of presyncope and shortness of breath, found to have extensive bilateral PEs in the right and left main pulmonary arteries, extending into right upper, middle, and lower lobe pulmonary arteries as well as multiple segmental and subsegmental branches, with dilated pulmonary trunk indicating pulmonary hypertension He presented with hypotension, elevated troponin, and received tPA half dose on admission for thrombolytic therapy DVT found in left mid SFV through the popliteal vein and into the calf, along with superficial venous thrombi and bilateral lesser saphenous veins into the calves, approaching 1 cm from popliteal vein extending greater than 7 cm in length (high risk superficial thrombi) DVT/PE provoked by history of previous DVT as well as multiple recent long car rides over 10 hours in length. Troponin peaked at 52 on arrival and trended downward Admitted to ICU and started on heparin drip, then converted to Eliquis 10mg po bid the next morning Doing well, not requiring supplemental O2, has not had any chest pain, denies any dyspnea on exertion, BPs have been normal, and he is ambulating without difficulties Echocardiogram does show moderate to severe reduced RV function, flattened septum/RV overload, RVSP 40-50 mmHg, EF 40-45%, and severe apical wall hypokinesis Continue Eliquis 10 Mg p.o. twice daily x 7 days total, then decrease to 5 Mg p.o. twice daily-recommend lifelong anticoagulation given second lifetime VTE Ok to resume home Entresto and carvedilol at half dose as BPs without them are still around 120s-130s/70s and HRs 50-60s with 1st degree AV block Advised monitoring BP and HR after discharge and f/u with PCP as soon as he returns home later this week to [place] Advised compression stockings for leg swelling Monitor for signs of decompensated right heart failure-none at this time (2) Right heart failure: As noted above, secondary to massive PE Follow-up with cardiology after discharge (3) Acute DVT (deep venous thrombosis): As noted above (4) Heart failure with mid-range ejection fraction (HFmEF): With a history of LVEF 40 and 45% on echocardiogram from [place], similar EF here with severe apical wall hypokinesis noted He denies having a cardiac catheterization and this was thought to be nonischemic and secondary to frequent PVCs for now which she has had VT ablation x 3 No evidence of volume overload at this time Holding Entresto and carvedilol for previous hypotension, resume after discharge at half doses Daily weights (5) Elevated troponin: Secondary to PE, trended back downward ECG without ischemic changes (6) Diabetes: Type II DM on metformin monotherapy, metformin held Blood sugars here are only minimally elevated Plan to resume metformin on discharge Plan Disposition: discharge to home today, Eliquis back checked and is $0 copay CODE STATUS: Full code Discussed care with at the bedside Notes For Next Care Provider Follow BPs, HR in 1 week, increase Entresto and Coreg back to usual doses if stable Medication Changes From Visit Added Eliquis 10mg po bid x 5.5 more days then 5mg po bid Decreased Entresto to 1/2 tab po bid Decreased Coreg to 12.5 mg po bid Admission HPI Per Admitting Provider Yuniel is a 68-year-old male with a past medical 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 Shortness of breath worsened and presented to the ER. He was found to have bilateral extensive PE with high clot burden, no saddle PE. She is from out of town and lives near [place]. He reports that he has had multiple 10-hour drive in the last week as he had been traveling with his . Yesterday he was a little short of breath in the evening, today he was feeling his vehicle and shortness of breath significantly increased and was associated with lightheadedness and presyncope, but without syncope. He did not have chest pain at the time. He did not pass out or hit his head. He was advised to go to the ER after contacting his PCP by phone. He had a colonoscopy 2 days ago which reportedly had a small amount of bright red hemorrhoidal bleeding which resolved and he has had normal bowel movements since. No melena. No hematochezia in the last 24 hours. Denies history of other significant bleeding including GI bleeds, spontaneous epistaxis. No known history of vascular malformations or aneurysms. On arrival patient's BP was 86/56 and 92/65. Heart rate 80s History of DVT many years ago. Cardiac ablation, ventricular ablation for PVCs. Well controlled after. No PVCs since, although are seen now s/p appendectomy hernia repair No surgery in the last 6 months Carvedilol, Entresto due to ablations and frequent PVCs with EF 40-45%. Had some dyspnea 1 week ago. Had a bubble study with no PFO in July Atorvastatin 20mg daily Metformin Well controlled DM 6.7% at last A1C Was in the car for 10 hours several times in the last few weeks travelling. - Dr. Castellano. [facility] in [facility] near [place] - Dr. Narendra Acosta with [facility] and [place], [place] No HX of ICH. NO known vascular malformation or cancer. No hx of stroke or dissection. No active bleeding. No trauma./ Medical History: Reviewed Medications: Reviewed. Surgical History: Reviewed Family history: Reviewed. No FHx of VTE/PE. Allergies: Reviewed. Cough to lisinopril, otherwise NKDA Social History: No tobacco, former smoker 30 years ago. 1 drink ETOH per night, no hx withdrawal or issues going without Code Status: Full Code Discharge Exam Constitutional WD/WN, vitals as above Respiratory normal respiratory effort, lungs clear to auscultation Cardiovascular Rate/Rhythm: regular rate and regular rhythm Heart Sounds: no murmur Extremities: + edema (Trace edema left leg) Gastrointestinal (Abdomen) normal bowel sounds, soft, nontender, no hepatosplenomegaly Psychiatric A+Ox3, euthymic affect Updated Medication List Medication Instructions Recorded Confirmed Type B12 1 tab PO QAM 11/20/23 11/20/23 History aspirin 81 mg tablet,delayed 81 mg PO QAM 11/20/23 11/20/23 History release atorvastatin 20 mg tablet 20 mg PO HS 11/20/23 11/20/23 History metformin 500 mg tablet,extended 1,000 mg PO DAILY 11/20/23 11/20/23 History release 24hr (osmotic) sildenafil (pulm.hypertension) 20 20 mg PO UD PRN Other 11/20/23 11/20/23 H istory mg tablet apixaban 5 mg tablet (Eliquis) 10 mg (2 x 5 mg) PO BID #71 tabs 11/22/23 Rx carvedilol 25 mg tablet 12.5 mg (1/2 x 25 mg) PO BID #30 11/22/23 11/20/23 Rx tabs sacubitril 24 mg-valsartan 26 mg 0.5 tab PO BID #30 tabs 11/22/23 11/20/23 Rx tablet (Entresto) Hospital Stay Data Consultations 11/20/23 13:07 ED Decision to Admit Stat 11/20/23 14:29 Consult Biological Technical Officer Routine Diagnostic Imagining Performed 11/20/23 11:17 CT angio chest PE protocol Stat 11/20/23 13:39 US venous doppler LE BI Urgent Echocardiogram Pending Results Patient Have Any Pending Studies at Discharge: No Discharge Instructions Given to Patient (Per Discharging Provider) You were admitted with large blood clots in your legs as well as in your leg. You were treated initially with a clot busting medication called tPA and then started on anticoagulation with Eliquis. It is very important that you take the Eliquis as prescribed. You should wear compression stockings to help reduce swelling from the blood clot. If you develop any issues with bleeding or fall and hit your head, please go to the hospital right away to be evaluated. If you develop lightheadedness, shortness of breath, or chest pain, please also return to the hospital right away. Because of your lower blood pressures and heart rate in the 50-60s, your doses of Coreg and Entresto will be cut in half for now. Please monitor your blood pressure and heart rate after discharge and follow up with your PCP when you get home. Total Time Total Time Spent Total Time Spent (In Minutes): 35 min Total Time Includes: Examination of the Patient, Discharge Planning and Medication Reconciliation Coding Level of Care Code 00805 INP/OBS DISCH >30 MIN Diagnoses Pulmonary embolism I26.99 Acute cor pulmonale presence: unspecified Chronicity: acute Pulmonary embolism type: unspecified Right heart failure I50.810 Acute DVT (deep venous thrombosis) I82.409 Heart failure with mid-range ejection fraction (HFmEF) I50.22 Elevated troponin R79.89 Diabetes E11.9
--- NOTE | 2023-11-22 11:42 | Electrocardiogram Report ---
Test Reason : Blood Pressure : / mmHG Vent. Rate : 082 BPM Atrial Rate : 082 BPM P-R Int : 206 ms QRS Dur : 150 ms QT Int : 440 ms P-R-T Axes : 031 -80 079 degrees QTc Int : 514 ms Sinus rhythm with frequent Premature ventricular complexes Non-specific intra-ventricular conduction delay Abnormal ECG No previous ECGs available Confirmed by Kishor Diaz ([id number]) on 11/22/2023 11:42:11 AM Referred By: Angel Robertson Confirmed By:Kishor Diaz
== END 2023-11-22 11:54 | disposition home or self-care (01) | DRG 175 ==
LOC: ED 10:20 → SUATTDRO 13:38 → 1E 13:38 → 2S 11-21 18:09